=== PATIENT | male | born 1935 | race Caucasian/White ===

== ENCOUNTER 2017-06-01 05:32 | Inpatient (IN) | payer MEDICARE, OTHER ==
[2017-05-20 16:14] LABS: BASOPHILS % (AUTO) 0.3 % (0-1); EOSINOPHILS # (AUTO) 0.2 X10'3 (0-0.9); EOSINOPHILS % (AUTO) 2.8 % (0-6); LYMPHOCYTES # (AUTO) 1.6 X10'3 (1.1-4.8); LYMPHOCYTES % (AUTO) 24.2 % (21-51); MEAN CORPUSCULAR HEMOGLOBIN 31.5 PG (27.0-31.0); MEAN CORPUSCULAR HGB CONC 34.4 % (33.0-36.5); MEAN CORPUSCULAR VOLUME 91.6 FL (78-98); MEAN PLATELET VOLUME 10.7 FL (7.4-10.4); MONOCYTES # (AUTO) 0.6 X10'3 (0-0.9); MONOCYTES % (AUTO) 8.5 % (2-12); NEUTROPHILS # (AUTO) 4.3 X10'3 (1.8-7.7); NEUTROPHILS % (AUTO) 64.2 % (42-75); PRE OP HEMATOCRIT 42.6 % (42.0-52.0); PRE OP HEMOGLOBIN 14.6 g/dL (14.0-17.9); PRE OP PLATELET COUNT 167 X10'3 (140-440); RED BLOOD COUNT 4.65 X10'6 (4.70-6.10); RED CELL DISTRIBUTION WIDTH 14.5 % (11.5-14.5)
[2017-05-20 16:23] LABS: PRE OP INR 0.9 INR; PRE OP PROTIME 9.7 SECONDS (9.0-12.0)
[2017-05-20 16:29] LABS: ALBUMIN 3.9 G/DL (3.4-5.0); ALBUMIN/GLOBULIN RATIO 1.2 (1.1-1.5); ALKALINE PHOSPHATASE 67 IU/L (46-116); BLOOD UREA NITROGEN 22 MG/DL (7-18); BUN/CREATININE RATIO 23.2 (5.4-32.0); CALCIUM 9.3 MG/DL (8.5-10.1); CHLORIDE 106 MMOL/L (99-107); CREATININE 0.95 MG/DL (0.60-1.10); PRE OP ALT 32 U/L (30-65); PRE OP ANION GAP 8 (8-16); PRE OP AST 21 U/L (10-37); PRE OP BILIRUB, TOTAL 0.9 MG/DL (0.0-1.0); PRE OP GLUCOSE 90 MG/DL (70-104); PRE OP POTASSIUM 4.1 MMOL/L (3.4-5.1); PRE OP SODIUM 143 MMOL/L (135-145); TOTAL CARBON DIOXIDE 28.7 MMOL/L (24-32); TOTAL PROTEIN 7.1 G/DL (6.4-8.2); eGFR 76 ML/MIN
[2017-05-20 16:49] LABS: LARGE PLATELETS FEW; PLATELET ESTIMATE NORMAL
[~2017-06-01] VITALS: Ht 175.3 cm; Wt 92.4 kg
[2017-06-01] VITALS (19 sets, daily range): BP systolic 87–131; BP diastolic 44–81
[~2017-06-01 05:32] MED LIST: ASPI-1264 PO; FLUT15.88; FOLI1TAB16 PO; LISI-600 PO; MULT-1085 PO; ROSU20TA PO; cefazolin/dext.iso 2gm/50ml 50 ML IV ONE; famotidine 20mg tablet PO ONE; ringers solution, lacted 1,000 ML IV SCH; vancomycin inj 1,500 MG in normal saline 300ml IV soln IV ONE
[2017-06-01] MEDS ORDERED: LIDOcaine 1% (10mg/ml) 2ml vial ONE (06:06)
[2017-06-01] MEDS ORDERED: ceFAZolin 1000mg inj ONE (06:58)
[2017-06-01] MEDS ORDERED: cloNIDine hcl/PF 100mcg/ml inj ONE (07:19)
[2017-06-01] MEDS ORDERED: sevoflurane 250ml liquid IH ONE (07:20)
[2017-06-01] MEDS ORDERED: BUPIVAcaine/dex-water/PF 7.5 mg/ml 2ml ampul ONE (07:20)
[2017-06-01] MEDS ORDERED: MORPHINE SULFATE/PF 0.5 MG/ML 10ML AMPUL ONE (07:24)
[2017-06-01] MEDS ORDERED: midazolam 2 mg/2 ml injection ONE (07:24)
[2017-06-01] MEDS ORDERED: TRANEXAMIC ACID IV ONE (07:25)
[2017-06-01] MEDS ORDERED: NORMAL SALINE IV ONE (07:25)
[2017-06-01] MEDS ORDERED: propofol inj 20 ML IV ONE (08:12)
[2017-06-01] MEDS ORDERED: epiNEPHrine 1 mg/ml inj ONE (08:13)
[2017-06-01] MEDS ORDERED: LIDOcaine 2% (20mg/ml) 5ml vial ONE (08:13)
[2017-06-01] MEDS ORDERED: ringers solution, lacted 1,000 ML IV SCH (08:19)
[2017-06-01] MEDS ORDERED: naloxone 2mg/2ml inj 2 MG in normal saline 500ml IV soln 500 ML IV PRN (08:19)
[2017-06-01] MEDS ORDERED: proCHLORperazine 10 MG/2 ml inj IV PRN (08:20)
[2017-06-01] MEDS ORDERED: diphenhydrAMINE 50 mg/ml inj IV PRN (08:20)
[2017-06-01] MEDS ORDERED: ondansetron/PF 4mg/2ml inj IV PRN ×3 (08:20→10:30)
[2017-06-01] MEDS ORDERED: meperidine/PF 50mg/ml syringe IV PRN ×3 (08:20)
[2017-06-01] MEDS ORDERED: morphine 2 MG/ML inj. syringe IV PRN ×2 (08:20)
[2017-06-01] MEDS ORDERED: ePHEDrine 50MG/ML INJ. ONE (09:40)
[2017-06-01] MEDS ORDERED: dexamethasone sod phosphate 4mg/ml inj. ONE (09:40)
[2017-06-01] MEDS ORDERED: ondansetron/PF 4mg/2ml inj ONE (09:41)
[2017-06-01] MEDS ORDERED: phenylephrine 10mg/ml inj IV ONE (09:41)
[2017-06-01] MEDS ORDERED: BUPIVAcaine/PF 2.5 mg/ml (0.25%) 30ml vial ONE (09:41)
[2017-06-01] MEDS ORDERED: HYDROmorphone inj. 0.5 MG/0.5 ML DISP.SYRIN IV PRN (10:30)
[2017-06-01] MEDS ORDERED: fluticasone nasal spray 16GM bottle NS PRN (10:30)
[2017-06-01] MEDS ORDERED: magnesium hydroxide 30ml (MOM) UD suspension PO PRN (10:30)
[2017-06-01] MEDS ORDERED: bisacodyl 10mg suppository rectal RC PRN (10:30)
[2017-06-01] MEDS ORDERED: HYDROcodone/acetaminophen 10/325mg tab PO PRN (10:30)
[2017-06-01] MEDS ORDERED: acetaminophen 325mg tablet PO PRN (10:30)
[2017-06-01] MEDS ORDERED: diphenhydrAMINE 25mg capsule PO PRN ×2 (10:30)
[2017-06-01] MEDS ORDERED: tranexamic acid inj. 900 MG in normal saline 100ml IV soln 100 ML IV ONE (14:00)
[2017-06-01] MEDS: cefazolin 1gm/NS 100mL 100 ML IV SCH (16:28)
[2017-06-01] MEDS: potassium cl 20mEq in 1/2 NS 1,000 ML IV SCH ×2 (16:29→23:49)
[2017-06-01] MEDS ORDERED: aspirin 325mg tablet PO SCH (17:30)
[2017-06-01] MEDS: aspirin 81mg tab.chew PO SCH ×2 (17:57→20:54)
[2017-06-01] MEDS ORDERED: vancomycin/NS 1 GM ADD-VANTAGE 250 ML IV SCH (20:00)
[2017-06-01] MEDS: sennosides 8.6mg tablet PO SCH (20:54)
[2017-06-02] MEDS: cefazolin 1gm/NS 100mL 100 ML IV SCH (00:43)
[2017-06-02 02:00] VITALS: BP 99/67
[2017-06-02] MEDS ORDERED: morphine 4 MG/ML inj SYRINge IV PRN (02:05)
[2017-06-02] MEDS: HYDROcodone/acetaminophen 10/325mg tab PO PRN ×3 (05:21→20:29)
[2017-06-02 06:00] VITALS: BP 108/60
[2017-06-02 06:06] LABS: BASOPHILS % (AUTO) 0 % (0-1); EOSINOPHILS % (AUTO) 0 % (0-6); HEMATOCRIT 33.5 % (42.0-52.0); HEMOGLOBIN 11.5 g/dl (14.0-17.9); LYMPHOCYTES # (AUTO) 0.7 X10'3 (1.1-4.8); LYMPHOCYTES % (AUTO) 6.9 % (21-51); MEAN CORPUSCULAR HEMOGLOBIN 31.1 PG (27.0-31.0); MEAN CORPUSCULAR HGB CONC 34.2 % (33.0-36.5); MEAN CORPUSCULAR VOLUME 90.7 FL (78-98); MEAN PLATELET VOLUME 9.6 FL (7.4-10.4); MONOCYTES # (AUTO) 0.7 X10'3 (0-0.9); MONOCYTES % (AUTO) 7.5 % (2-12); NEUTROPHILS # (AUTO) 8.2 X10'3 (1.8-7.7); NEUTROPHILS % (AUTO) 85.6 % (42-75); PLATELET COUNT 137 X10'3 (140-440); RED CELL DISTRIBUTION WIDTH 13.6 % (11.5-14.5); WHITE BLOOD COUNT 9.5 X10'3 (4.5-11.0)
[2017-06-02 06:38] LABS: ALANINE AMINOTRANSFERASE 49 U/L (12-78); ALBUMIN/GLOBULIN RATIO 1.1 (1.1-1.5); ALKALINE PHOSPHATASE 44 IU/L (46-116); ANION GAP 9 (8-16); ASPARTATE AMINO TRANSFERASE 143 U/L (10-37); BILIRUBIN,TOTAL 0.7 MG/DL (0.1-1.0); BLOOD UREA NITROGEN 18 MG/DL (7-18); BUN/CREATININE RATIO 21.2 (5.4-32.0); CALCIUM 8.2 MG/DL (8.5-10.1); CHLORIDE 108 MMOL/L (99-107); CREATININE 0.85 MG/DL (0.60-1.10); GLUCOSE 146 MG/DL (70-104); POTASSIUM 4.2 MMOL/L (3.5-5.1); SODIUM 144 MMOL/L (135-145); TOTAL CARBON DIOXIDE 27.5 MMOL/L (24-32); TOTAL PROTEIN 5.7 G/DL (6.4-8.2); eGFR 86 ML/MIN
[2017-06-02] MEDS: aspirin 81mg tab.chew PO SCH ×2 (07:46→20:16)
[2017-06-02] MEDS: potassium cl 20mEq in 1/2 NS 1,000 ML IV SCH (07:50)
[2017-06-02 11:28] VITALS: BP 116/66
[2017-06-02 18:00] VITALS: BP 104/66
[2017-06-02] MEDS: sennosides 8.6mg tablet PO SCH (20:16)
[2017-06-02 22:00] VITALS: BP 95/58
[2017-06-03] MEDS: HYDROcodone/acetaminophen 10/325mg tab PO PRN (03:53)
[2017-06-03 05:35] LABS: BASOPHILS % (AUTO) 0.2 % (0-1); EOSINOPHILS # (AUTO) 0.2 X10'3 (0-0.9); EOSINOPHILS % (AUTO) 1.9 % (0-6); HEMATOCRIT 29.7 % (42.0-52.0); LYMPHOCYTES # (AUTO) 0.7 X10'3 (1.1-4.8); LYMPHOCYTES % (AUTO) 6.9 % (21-51); MEAN CORPUSCULAR HEMOGLOBIN 30.7 PG (27.0-31.0); MEAN CORPUSCULAR HGB CONC 33.5 % (33.0-36.5); MEAN CORPUSCULAR VOLUME 91.7 FL (78-98); MONOCYTES # (AUTO) 0.9 X10'3 (0-0.9); MONOCYTES % (AUTO) 9.3 % (2-12); NEUTROPHILS # (AUTO) 7.8 X10'3 (1.8-7.7); NEUTROPHILS % (AUTO) 81.7 % (42-75); PLATELET COUNT 119 X10'3 (140-440); RED BLOOD COUNT 3.24 X10'6 (4.70-6.10); RED CELL DISTRIBUTION WIDTH 14.2 % (11.5-14.5); WHITE BLOOD COUNT 9.6 X10'3 (4.5-11.0)
[2017-06-03 05:55] LABS: ALANINE AMINOTRANSFERASE 49 U/L (12-78); ALBUMIN 2.8 G/DL (3.4-5.0); ALBUMIN/GLOBULIN RATIO 0.9 (1.1-1.5); ALKALINE PHOSPHATASE 44 IU/L (46-116); ANION GAP 8 (8-16); ASPARTATE AMINO TRANSFERASE 134 U/L (10-37); BILIRUBIN,TOTAL 0.7 MG/DL (0.1-1.0); BLOOD UREA NITROGEN 17 MG/DL (7-18); BUN/CREATININE RATIO 22.1 (5.4-32.0); CALCIUM 8.5 MG/DL (8.5-10.1); CHLORIDE 105 MMOL/L (99-107); CREATININE 0.77 MG/DL (0.60-1.10); GLUCOSE 119 MG/DL (70-104); POTASSIUM 4.1 MMOL/L (3.5-5.1); SODIUM 143 MMOL/L (135-145); TOTAL CARBON DIOXIDE 30.5 MMOL/L (24-32); TOTAL PROTEIN 5.9 G/DL (6.4-8.2); eGFR > 90 ML/MIN
[2017-06-03 06:00] VITALS: BP 116/69
[2017-06-03] MEDS ORDERED: HYDR-3972 PO (07:05)
[2017-06-03] MEDS ORDERED: ASPI-1265 PO (07:05)
[2017-06-03] MEDS: aspirin 81mg tab.chew PO SCH (07:08)
== END 2017-06-03 11:00 | disposition home or self-care (01) | DRG 470 ==
LOC: PAS IN 05:32 → EDSTATUS 07:30 → ORTHO 4S 12:30
PROVIDERS: ADMIT Orthopaedic Surgery; ATTEND Orthopaedic Surgery
PROC: 3E0T3BZ Introduction of Anesthetic Agent into Peripheral Nerves and Plexi, Percutaneous Approach (ICD-10-PCS; 2017-06-01)
PROC: 0SRC0J9 Replacement of Right Knee Joint with Synthetic Substitute, Cemented, Open Approach (ICD-10-PCS; principal; 2017-06-01 07:20)
DX: M17.11 Unilateral primary osteoarthritis, right knee (principal); D62 Acute posthemorrhagic anemia; E78.5 Hyperlipidemia, unspecified; I10 Essential (primary) hypertension; Z79.899 Other long term (current) drug therapy; Z90.79 Acquired absence of other genital organ(s); Z85.46 Personal history of malignant neoplasm of prostate; Z92.3 Personal history of irradiation; Z87.891 Personal history of nicotine dependence
CPT/HCPCS: 36415; 71046; 80053; 85025; 85610; 85730; 86870; 86880; 86885; 86900; 86901; 86902; 86905; 86922; 87070; 93005; 97110; 97116; 97162; 97530; A6454; A7000; C1713; C1758; C1776; J0171; J0690; J0735; J1100; J2001; J2250; J2274; J2370; J2405; J2704; J3370; J3490; J7030; J7120

== ENCOUNTER 2018-08-20 09:02 | Day surgery (SDC) | payer MEDICARE, OTHER ==
[2018-08-17 13:26] LABS: BASOPHILS % (AUTO) 0.4 % (0-1); EOSINOPHILS # (AUTO) 0.2 X10'3 (0-0.9); EOSINOPHILS % (AUTO) 2.2 % (0-6); LYMPHOCYTES # (AUTO) 1.4 X10'3 (1.1-4.8); LYMPHOCYTES % (AUTO) 20.7 % (21-51); MEAN CORPUSCULAR HEMOGLOBIN 31.1 PG (27.0-31.0); MEAN CORPUSCULAR HGB CONC 33.2 g/dL (33.0-36.5); MEAN CORPUSCULAR VOLUME 93.6 FL (78-98); MEAN PLATELET VOLUME 10.3 FL (7.4-10.4); MONOCYTES # (AUTO) 0.7 X10'3 (0-0.9); MONOCYTES % (AUTO) 9.4 % (2-12); NEUTROPHILS # (AUTO) 4.6 X10'3 (1.8-7.7); NEUTROPHILS % (AUTO) 67.3 % (42-75); PRE OP HEMOGLOBIN 14.3 g/dL (14.0-17.9); PRE OP PLATELET COUNT 155 X10'3 (140-440); RED CELL DISTRIBUTION WIDTH 14.6 % (11.5-14.5)
[2018-08-17 13:52] LABS: ALBUMIN 3.5 G/DL (3.4-5.0); ALBUMIN/GLOBULIN RATIO 1.1 (1.1-1.5); ALKALINE PHOSPHATASE 62 IU/L (46-116); BLOOD UREA NITROGEN 22 MG/DL (7-18); BUN/CREATININE RATIO 25.9 (5.4-32.0); CALCIUM 8.6 MG/DL (8.5-10.1); CHLORIDE 106 MMOL/L (99-107); CREATININE 0.85 MG/DL (0.60-1.10); PRE OP ALT 32 U/L (30-65); PRE OP ANION GAP 7 (8-16); PRE OP AST 19 U/L (10-37); PRE OP BILIRUB, TOTAL 0.6 MG/DL (0.0-1.0); PRE OP GLUCOSE 96 MG/DL (70-104); PRE OP POTASSIUM 3.6 MMOL/L (3.4-5.1); PRE OP SODIUM 142 MMOL/L (135-145); TOTAL CARBON DIOXIDE 28.6 MMOL/L (24-32); TOTAL PROTEIN 6.7 G/DL (6.4-8.2); eGFR 86 ML/MIN
[2018-08-20] VITALS (8 sets, daily range): BP systolic 148–178; BP diastolic 87–100
[~2018-08-20] VITALS: Ht 177.8 cm; Wt 89.4 kg
[~2018-08-20 09:02] MED LIST changes: -ASPI-1264 PO; -FLUT15.88; -MULT-1085 PO; -ROSU20TA PO; +ROSU20TA2 PO; -cefazolin/dext.iso 2gm/50ml 50 ML IV ONE; -famotidine 20mg tablet PO ONE; -ringers solution, lacted 1,000 ML IV SCH; -vancomycin inj 1,500 MG in normal saline 300ml IV soln IV ONE
[2018-08-20] MEDS ORDERED: cefazolin/dext.iso 2gm/100 ML IV ONE (09:15)
[2018-08-20] MEDS ORDERED: famotidine 20mg tablet PO ONE (09:15)
[2018-08-20] MEDS ORDERED: ringers solution, lacted 1,000 ML IV SCH (09:15)
[2018-08-20] MEDS ORDERED: ondansetron/PF 4mg/2ml inj ONE (11:47)
[2018-08-20] MEDS ORDERED: sevoflurane 250ml liquid IH ONE (11:47)
[2018-08-20] MEDS ORDERED: propofol 10mg/ml 20ml vial IV ONE (11:47)
[2018-08-20] MEDS ORDERED: LIDOcaine 1%/PF 5ML 10 MG/ML VIAL ONE (11:47)
[2018-08-20] MEDS ORDERED: fentaNYL/PF 50MCG/1 ML 2ML syringe ONE (11:56)
--- NOTE | 2018-08-20 12:22 | NUR ---
Received from OR via , accompanied by Anesthesiologist DR PALACIOS and report given by Anesthesiolgist. AWAKENS TO VOICE. VITALS STABLE. SAÚL PAIN.
--- NOTE | 2018-08-20 13:22 | NUR ---
AWAKE AND ORIENTED. VITALS STABLE. SAÚL PAIN. HOME WITH FAMILY AT THIS TIME.
== END 2018-08-20 13:22 | disposition home or self-care (01) ==
LOC: PAS 09:02
PROVIDERS: ATTEND Urology
DX: D49.4 Neoplasm of unspecified behavior of bladder (principal); E78.2 Mixed hyperlipidemia; M19.90 Unspecified osteoarthritis, unspecified site; Z87.891 Personal history of nicotine dependence; Z85.45 Personal history of malignant neoplasm of unspecified male genital organ; Z79.82 Long term (current) use of aspirin; Z85.46 Personal history of malignant neoplasm of prostate; Z79.899 Other long term (current) drug therapy; Z98.890 Other specified postprocedural states; Z96.651 Presence of right artificial knee joint
CPT/HCPCS: 36415; 52234; 80053; 82948; 85025; 93005; J0690; J2001; J2405; J2704; J3010; 88305; A4402; J7030; J7120

== ENCOUNTER 2019-01-11 20:31 | Emergency (ER) | payer MEDICARE, OTHER ==
[~2019-01-11] VITALS: Ht 177.8 cm; Wt 81.6 kg
[2019-01-11 20:37] VITALS: BP 173/108
[2019-01-11 21:52] LABS: COLOR,URINE BROWN (Yellow); GLUCOSE, URINE NEGATIVE (Neg); KETONES,URINE NEGATIVE (Neg); LEUKOCYTE ESTERASE ,URINE NEGATIVE (Neg); NITRITES, URINE NEGATIVE (Neg); OCCULT BLOOD,URINE LARGE (Neg); PH,URINE 5.5 (4.8-8.0); PROTEIN,URINE 100 mg/dl (Neg); UROBILINOGEN,URINE 0.2 E.U/dL (0.2-1.0)
[2019-01-11 21:57] LABS: CLARITY,URINE SLIGHTLY CLOUDY (Clear); UA COLLECTION TYPE FOLEY CATH
[2019-01-11 21:59] LABS: RBC,URINE 50-100 /HPF (0-2); WBC,URINE 0-4 /HPF (0-4)
[2019-01-11 22:00] LABS: BACTERIA,URINE FEW /HPF (Neg); MUCUS STRANDS FEW /LPF (Neg); SQUAMOUS EPITHELIAL CELL,UR FEW /LPF (FEW)
--- NOTE | 2019-01-11 23:18 | NUR ---
leg bag attached to the lucas catheter as per argelia hernandez's orders,pt educated to to take care of lucas and how to empty the bag ,pt stated that he had sx before and had lucas in place he is aware of care .
== END 2019-01-11 23:20 | disposition home or self-care (01) ==
LOC: ER 20:32
DX: R33.9 Retention of urine, unspecified (principal); R31.9 Hematuria, unspecified; Z85.46 Personal history of malignant neoplasm of prostate; Z98.890 Other specified postprocedural states; Z79.899 Other long term (current) drug therapy
CPT/HCPCS: 51702; 81001; 99284

== ENCOUNTER 2019-01-12 16:46 | Emergency (ER) | payer MEDICARE, OTHER ==
[~2019-01-12] VITALS: Ht 177.8 cm; Wt 90.9 kg
[2019-01-12 18:45] VITALS: BP 99/61
== END 2019-01-12 18:39 | disposition home or self-care (01) ==
LOC: ER 16:48
DX: Z46.6 Encounter for fitting and adjustment of urinary device (principal); Z98.890 Other specified postprocedural states; Z79.899 Other long term (current) drug therapy
CPT/HCPCS: 99281

== ENCOUNTER → 2020-10-14 | Day surgery (SDC) | payer MEDICARE, OTHER ==
[~2020-10-14] VITALS: Ht 177.8 cm; Wt 88.0 kg
[~2020-10-14] MED LIST changes: +LIDOcaine 2% (20mg/ml) 5ml vial ONE; -LISI-600 PO; +LISI20TA28 PO; +cefazolin/dext.iso 2gm/100ml BAG IV ONE; +desflurane 240ml liquid inh. IH ONE; +dexamethasone sod phosphate 4mg/ml inj. ONE; +fentaNYL/PF 50MCG/1 ML 2ML syringe ONE; +fluoroscein sod 10% (100mg/ml) 5ml vial ONE; +iohexol 300 MG/1 ML 50ml polymer ONE; +iohexol 300mg/ml 100ml inj. ONE; +labetalol 20mg/4ml (5mg/ml) syringe IV ONE; +meperidine/PF 25mg/ml syringe IV PRN; +midazolam 1 mg/ML 2ml injection ONE; +morphine 2 MG/ML inj. syringe IV PRN; +morphine 4 MG/ML inj SYRINge IV PRN; +ondansetron/PF 4mg/2ml inj IV PRN; +proCHLORperazine 10 MG/2 ml inj IV PRN; +propofol inj 20 ML IV ONE; +ringers solution, lacted 1,000 ML IV SCH; +sevoflurane 250ml liquid IH ONE
[2020-10-14 12:03] LABS: BASOPHILS % (AUTO) 0.1 % (0-1); EOSINOPHILS % (AUTO) 0 % (0-6); HEMATOCRIT 44.2 % (42.0-52.0); LYMPHOCYTES # (AUTO) 0.6 X10'3 (1.1-4.8); LYMPHOCYTES % (AUTO) 5.8 % (21-51); MEAN CORPUSCULAR HEMOGLOBIN 32.4 PG (27.0-31.0); MEAN CORPUSCULAR VOLUME 95.3 FL (78-98); MEAN PLATELET VOLUME 10.4 FL (7.4-10.4); MONOCYTES # (AUTO) 0.5 X10'3 (0-0.9); NEUTROPHILS # (AUTO) 9.2 X10'3 (1.8-7.7); NEUTROPHILS % (AUTO) 89.1 % (42-75); PLATELET COUNT 163 X10'3 (140-440); RED BLOOD COUNT 4.64 X10'6 (4.70-6.10); RED CELL DISTRIBUTION WIDTH 14.3 % (11.5-14.5); WHITE BLOOD COUNT 10.4 X10'3 (4.5-11.0)
[2020-10-14 12:13] LABS: ALANINE AMINOTRANSFERASE 30 U/L (12-78); ALBUMIN/GLOBULIN RATIO 1.2 (1.1-1.5); ALKALINE PHOSPHATASE 61 IU/L (46-116); ANION GAP 12 (8-16); ASPARTATE AMINO TRANSFERASE 19 U/L (10-37); BILIRUBIN,TOTAL 1.2 MG/DL (0.1-1.0); BLOOD UREA NITROGEN 29 MG/DL (7-18); CALCIUM 8.9 MG/DL (8.5-10.1); CHLORIDE 106 MMOL/L (99-107); CREATININE 1.26 MG/DL (0.60-1.10); GLUCOSE 128 MG/DL (70-104); LIPASE 66 U/L (73-393); SODIUM 142 MMOL/L (135-145); TOTAL CARBON DIOXIDE 24.1 MMOL/L (24-32); TOTAL PROTEIN 7.4 G/DL (6.4-8.2); eGFR 54 ML/MIN
[2020-10-14 13:14] LABS: CLARITY,URINE CLEAR (Clear); COLOR,URINE YELLOW (Yellow); GLUCOSE, URINE NEGATIVE (Neg); KETONES,URINE NEGATIVE (Neg); LEUKOCYTE ESTERASE ,URINE TRACE (Neg); NITRITES, URINE NEGATIVE (Neg); OCCULT BLOOD,URINE LARGE (Neg); PROTEIN,URINE 100 mg/dl (Neg); UROBILINOGEN,URINE 0.2 E.U/dL (0.2-1.0)
[2020-10-14 13:15] LABS: UA COLLECTION TYPE VOIDED
[2020-10-14 13:17] LABS: BACTERIA,URINE NONE SEEN /HPF (Neg); MUCUS STRANDS NONE SEEN /LPF (Neg); RBC,URINE 0-2 /HPF (0-2); SQUAMOUS EPITHELIAL CELL,UR FEW /LPF (FEW); WBC,URINE 0-4 /HPF (0-4)
[2020-10-14 18:53] VITALS: BP 164/94
--- NOTE | 2020-10-14 18:53 | NUR ---
ASSUME CARE VSS NO DISTRESS AWAKE ALERT DENIES PAIN, IV TO RIGHT ARM INTACT, JOHNSON CATH TO GRAVITY SECURED WITH A STAT LOCK. CONT TO MONITOR Addendum: 10/14/20 at 1904 by Meri Parker RN Amended: Links added.
[2020-10-14 19:03] VITALS: BP 159/97
[2020-10-14 19:13] VITALS: BP 178/88
[2020-10-14 19:23] VITALS: BP 188/90
[2020-10-14 19:33] VITALS: BP 157/89
[2020-10-14 19:43] VITALS: BP 158/90
--- NOTE | 2020-10-14 19:50 | NUR ---
PT AWAKE DAUGHTER AT BEDSIDE DC INSTR GIVEN WITH INSTR ON JOHNSON CATH CARE AND WHEN TO FOLLOWUP WITH MD, NO ?'S OR CONCERNS PT MEETS CRITERIA TO DC HOME. Addendum: 10/14/20 at 2008 by Meri Parker RN Amended: Links added.
== END | disposition home or self-care (01) ==
LOC: ER 10:36
PROVIDERS: ATTEND Urology
DX: N21.0 Calculus in bladder (principal); N13.2 Hydronephrosis with renal and ureteral calculous obstruction; N21.1 Calculus in urethra; R33.9 Retention of urine, unspecified; I10 Essential (primary) hypertension; N17.9 Acute kidney failure, unspecified; Z79.899 Other long term (current) drug therapy; Z85.46 Personal history of malignant neoplasm of prostate; Z98.890 Other specified postprocedural states
CPT/HCPCS: 36415; 52317; 52332; 74177; 80053; 81001; 83690; 85025; 87088; 88300; 93005; 99285; C1758; C1769; C2617; J1100; J2001; J2250; J2704; J3010; J7030; Q9967; A4346; A4618; A5200; J3490; J7120

== ENCOUNTER → 2020-11-09 | Emergency (ER) | payer MEDICARE, OTHER ==
[~2020-11-09] VITALS: Ht 177.8 cm; Wt 125.9 kg
[~2020-11-09] MED LIST changes: -LIDOcaine 2% (20mg/ml) 5ml vial ONE; +LIDOcaine 2% 10ml TOPICAL JELLY (Urojet) MM ONE; -cefazolin/dext.iso 2gm/100ml BAG IV ONE; -desflurane 240ml liquid inh. IH ONE; -dexamethasone sod phosphate 4mg/ml inj. ONE; -fentaNYL/PF 50MCG/1 ML 2ML syringe ONE; -fluoroscein sod 10% (100mg/ml) 5ml vial ONE; -iohexol 300 MG/1 ML 50ml polymer ONE; -iohexol 300mg/ml 100ml inj. ONE; -labetalol 20mg/4ml (5mg/ml) syringe IV ONE; -meperidine/PF 25mg/ml syringe IV PRN; -midazolam 1 mg/ML 2ml injection ONE; -morphine 2 MG/ML inj. syringe IV PRN; -morphine 4 MG/ML inj SYRINge IV PRN; -ondansetron/PF 4mg/2ml inj IV PRN; -proCHLORperazine 10 MG/2 ml inj IV PRN; -propofol inj 20 ML IV ONE; -ringers solution, lacted 1,000 ML IV SCH; -sevoflurane 250ml liquid IH ONE
[2020-11-09 19:33] VITALS: BP 133/97
--- NOTE | 2020-11-09 22:19 | NUR ---
Drainage bag switched out to leg bag for discharge after irrigation
== END | disposition home or self-care (01) ==
LOC: ER 19:30
DX: R31.0 Gross hematuria (principal); R33.9 Retention of urine, unspecified; I74.8 Embolism and thrombosis of other arteries; I10 Essential (primary) hypertension; Z87.442 Personal history of urinary calculi; Z85.9 Personal history of malignant neoplasm, unspecified; Z98.890 Other specified postprocedural states; Z79.899 Other long term (current) drug therapy
CPT/HCPCS: 51700; 51702; 99284

== ENCOUNTER 2021-01-08 22:08 | Emergency (ER) | payer MEDICARE, OTHER ==
[~2021-01-08] VITALS: Ht 177.8 cm; Wt 85.0 kg
[~2021-01-08 22:08] MED LIST changes: -LIDOcaine 2% 10ml TOPICAL JELLY (Urojet) MM ONE
[2021-01-08 22:39] LABS: BASOPHILS % (AUTO) 0.2 % (0-1); EOSINOPHILS # (AUTO) 0.1 X10'3 (0-0.9); EOSINOPHILS % (AUTO) 0.7 % (0-6); HEMATOCRIT 33.1 % (42.0-52.0); LYMPHOCYTES % (AUTO) 7.5 % (21-51); MEAN CORPUSCULAR HEMOGLOBIN 29.3 PG (27.0-31.0); MEAN CORPUSCULAR HGB CONC 33.4 g/dL (33.0-36.5); MEAN CORPUSCULAR VOLUME 87.8 FL (78-98); MEAN PLATELET VOLUME 8.6 FL (7.4-10.4); MONOCYTES # (AUTO) 0.7 X10'3 (0-0.9); MONOCYTES % (AUTO) 5.7 % (2-12); NEUTROPHILS # (AUTO) 11.1 X10'3 (1.8-7.7); NEUTROPHILS % (AUTO) 85.9 % (42-75); PLATELET COUNT 296 X10'3 (140-440); RED BLOOD COUNT 3.77 X10'6 (4.70-6.10); RED CELL DISTRIBUTION WIDTH 16.4 % (11.5-14.5); WHITE BLOOD COUNT 12.9 X10'3 (4.5-11.0)
[2021-01-08 22:47] LABS: ALANINE AMINOTRANSFERASE 18 U/L (12-78); ALBUMIN 3.2 G/DL (3.4-5.0); ALBUMIN/GLOBULIN RATIO 0.8 (1.1-1.5); ALKALINE PHOSPHATASE 82 IU/L (46-116); ANION GAP 12 (8-16); ASPARTATE AMINO TRANSFERASE 17 U/L (10-37); BILIRUBIN,TOTAL 0.5 MG/DL (0.1-1.0); BLOOD UREA NITROGEN 30 MG/DL (7-18); BUN/CREATININE RATIO 22.6 (5.4-32.0); CALCIUM 8.8 MG/DL (8.5-10.1); CHLORIDE 109 MMOL/L (99-107); CREATININE 1.33 MG/DL (0.60-1.10); GLUCOSE 125 MG/DL (70-104); POTASSIUM 3.7 MMOL/L (3.5-5.1); SODIUM 147 MMOL/L (135-145); TOTAL CARBON DIOXIDE 25.9 MMOL/L (24-32); TOTAL PROTEIN 7.3 G/DL (6.4-8.2); eGFR 51 ML/MIN
[2021-01-08] MEDS ORDERED: LIDOcaine 2% 10ml TOPICAL JELLY (Urojet) MM ONE (23:20)
[2021-01-09] MEDS ORDERED: LIDOcaine 2% 10ml TOPICAL JELLY (Urojet) MM ONE (02:00)
--- NOTE | 2021-01-09 04:55 | NUR ---
DR KOWALSKI REQUESTED CONTINUOUS IRRIGATION OF CATHETER. [facility] PRIOR TO TRANSFERRING CARE TO [place], HAD PUT IN TWO DIFFERENT CATHETERS WITH CONTINUTOUS BLOOD CLOTS HAPPENING. MANUAL IRRIGATION HAS LOOSENED MANY CLOTHS AND CONTINUOUS IS NOW HOOKED UP WITH A MINIMAL BUT PATENT STEADY FLOW.
[2021-01-09 05:55] VITALS: BP 117/75
== END 2021-01-09 06:51 | disposition home or self-care (01) ==
LOC: ER 22:08
DX: R33.9 Retention of urine, unspecified (principal); R31.9 Hematuria, unspecified; R32 Unspecified urinary incontinence; I10 Essential (primary) hypertension; Z87.440 Personal history of urinary (tract) infections; Z85.9 Personal history of malignant neoplasm, unspecified; Z79.899 Other long term (current) drug therapy
CPT/HCPCS: 36415; 51702; 80053; 85025; 99284